=== PATIENT | male | born 1975 | race Caucasian/White ===

== ENCOUNTER 2017-06-18 20:37 | Emergency (ER) | payer OTHER ==
[2017-06-18 23:35] VITALS: BP 149/108
== END 2017-06-18 23:35 | disposition home or self-care (01) ==
LOC: ED 20:37
DX: S02.5XXA Fracture of tooth (traumatic), initial encounter for closed fracture (principal); X58.XXXA Exposure to other specified factors, initial encounter; Y93.89 Activity, other specified; Y99.8 Other external cause status; Y92.89 Other specified places as the place of occurrence of the external cause
CPT/HCPCS: J1885